=== PATIENT | female | born 1965 | race Caucasian/White ===

== ENCOUNTER → 2020-04-10 08:17 | Outpatient (BNVA) | payer OTHER, SELFPAY | PROVIDERS: Visit Provider Physician Assistant | DX: Z76.89 Persons encountering health services in other specified circumstances (principal) ==

== ENCOUNTER → 2020-04-30 10:11 | Outpatient (BNVA) | payer OTHER, SELFPAY | PROVIDERS: Visit Provider Surgery | DX: Z76.89 Persons encountering health services in other specified circumstances (principal) ==

== ENCOUNTER → 2020-05-21 13:14 | Outpatient (BNVA) | payer OTHER, SELFPAY | PROVIDERS: Visit Provider Surgery ==

== ENCOUNTER → 2020-05-22 08:13 | Outpatient (BNVA) | payer OTHER, SELFPAY | PROVIDERS: Visit Provider Dietitian, Registered ==

== ENCOUNTER → 2020-05-23 14:32 | Outpatient (BNVA) | payer OTHER, SELFPAY | PROVIDERS: Visit Provider Internal Medicine Cardiovascular Disease ==

== ENCOUNTER → 2020-05-31 07:37 | Outpatient (REF) | payer OTHER, SELFPAY ==
--- NOTE | 2020-05-31 07:39 | CA_ITS ---
Transthoracic Echocardiogram Patient (Last, First, Middle): Kyara Hurtado, Gender: Female Date of : 1965 Age: 54 Procedure Date: 05/31/2020 Procedure Type: Transthoracic Echocardiogram Location: OP Height: 167.64 cm Weight: 101.15 kg BSA: 2.09 m2 Heart Rate: bpm BP: 128 / 68 mmHg Bottle Carrier: Referring MD: Getachew Frazier MD Symptoms: I44.7 - Left bundle-branch block, unspecified Study Quality: Fair ECG Rhythm: Sinus Conclusions: - Normal left ventricular cavity size. - The left ventricular systolic function is low normal. The visually estimated ejection fraction is between 50-55%. - Normal right ventricular cavity size and systolic function. - There is mild dilatation of the ascending aorta. Findings Left Ventricle Normal left ventricular cavity size. There is mildly increased left ventricular wall thickness. The left ventricular systolic function is low normal. The visually estimated ejection fraction is between 50-55%. There is no evidence of regional wall motion abnormalities. There is paradoxical septal motion consistent with a left bundle branch block. Diastolic function is indeterminate on the basis of available data. Right Ventricle Normal right ventricular cavity size and systolic function. Atria Both atria are normal in size. There is no evidence of interatrial shunt by color Doppler. Aortic Valve Normal aortic valve structure and function. There is no aortic valve stenosis. There is no aortic valve regurgitation. Mitral Valve Normal mitral valve structure and function. There is no mitral valve regurgitation. There is trace mitral valve stenosis. Pulmonic Valve Normal pulmonic valve structure and function. Tricuspid Valve Normal tricuspid valve structure and function. There is no tricuspid valve regurgitation. Normal right atrial pressure. There is no evidence of pulmonary hypertension. Great Vessels There is mild dilatation of the ascending aorta. The visualized portions of the pulmonary artery and branches are normal. Venous The inferior vena cava is normal in size and collapses greater than 50% with inspiration. Pericardium/Pleural There is no evidence of pericardial effusion. Prior Study Comparison No prior study available for comparison. Measurements 2D Linear Measurements IVSd: 1.12 0.6-0.9/0.6-1.0 cm LVIDd: 4.34 3.9-5.3/4.2-5.9 cm LVIDd Index: 2.08 2.4-3.2/2.2-3.1 cm/m2 LVIDs: 2.77 2.0-3.6 cm LVPWd: 1.10 0.7-1.1 cm Ao Root: 2.70 2.1-3.5 cm LA Diam: 3.90 2.7-3.8/3.0-4.0 cm LAIDs Index: 1.87 1.5-2.3 cm/m2 LV Mass: 208.58 67-162/88-224 g LV Mass Index: 99.80 43-95/49-115 g/m2 LVOT Diam: 2.10 3.0+(-)1.3 cm 2D Systolic Function EF 4C: 47.50 >55% EF 2C: 59.40 >55% Mitral Valve MV Pk E: 0.83 MV PK A: 0.74 MV Decel Time: 151.00 E/A: 1.10 E'Lateral: 11.70 E'Medial: 7.64 E/E' Med: 10.90 E/E' Lat: 7.10 PHT: 44.00 MVA PHT: 5.00 Decel [place]: 5.48 Aortic Valve AoV Pk Jayme: 1.88 AoV Mn Jayme: 1.32 AoV VTI: 0.41 AoV Pk Grad: 14.00 Aov Mn Grad: 8.00 WENDI Cont.VTI: 2.34 LVOT LVOT Pk Jayme: 1.29 LVOT Mn Jayme: 1.00 LVOT VTI: 0.28 LVOT Pk Grad: 7.00 LVOT Mn Grad: 5.00 LVOT Diam: 2.10 LVOT Area: 3.46 Diastolic Function MV Pk E: 0.83 MV Pk A: 0.74 E/A: 1.10 E'Medial: 7.64 E/E' Med: 10.90 E' Laterial: 11.70 E/E' Lat: 7.10 Tricuspid Valve TR Pk Jayme: 1.58 TR Pk Grad: 10.00 RA Press: 3.00 RVSP: 13.00 Great Vessels Aorta Ao Root-2D: 2.70 2.0-3.7 cm Ao Asc: 3.40 2.1-3.4 cm Pulmonary Valve PV Pk Jayme: 1.17 Peak PV Grad: 5.00 Updated in Other Vendor System with Status of Final Getachew Frazier MD electronically signed on 06/01/2020 12:51:47 PM with status of Final
== END ==
LOC: HO.CARD 07:37
PROVIDERS: Visit Provider Internal Medicine Cardiovascular Disease
DX: I44.7 Left bundle-branch block, unspecified (principal)
CPT/HCPCS: 93306

== ENCOUNTER → 2020-06-25 14:26 | Outpatient (BNVA) | payer OTHER, SELFPAY | PROVIDERS: Visit Provider Surgery | DX: I44.7 Left bundle-branch block, unspecified (principal) ==

== ENCOUNTER → 2020-07-08 14:47 | Outpatient (BNVA) | payer OTHER, SELFPAY | PROVIDERS: Visit Provider Surgery ==

== ENCOUNTER → 2020-07-25 14:45 | Outpatient (BNVA) | payer OTHER, SELFPAY | PROVIDERS: Visit Provider Surgery ==

== ENCOUNTER → 2020-08-15 14:35 | Outpatient (BNVA) | payer OTHER, SELFPAY | PROVIDERS: Visit Provider Surgery ==

== ENCOUNTER → 2020-08-16 13:58 | Outpatient (BNVA) | payer OTHER, SELFPAY | PROVIDERS: Visit Provider Physician Assistant ==

== ENCOUNTER 2020-08-21 06:26 | Inpatient (IN) | payer OTHER, SELFPAY ==
[2020-08-13 09:03] VITALS: BMI 33.7
[2020-08-15 17:22] LABS: MANUAL DIFF FLAG NO
[2020-08-15 17:25] LABS: Basophils Percent Auto 0.4 % (0-2); Eosinophils Absolute Auto 0.1 X10*3/uL (0.0-0.4); Eosinophils Percent Auto 1.6 % (0-4); Hematocrit 35.6 % (37-47); Hemoglobin 11.8 g/dl (12.0-16.0); Imm Gran Abs Auto 0.02 X10*3/uL (0.00-0.03); Imm Gran Pct Auto 0.4 % (0.0-0.4); Lymphocytes Percent Auto 36.3 % (20-40); Mean Corpuscular HGB Conc 33.1 g/dl (31.0-35.0); Mean Corpuscular Hemoglobin 31.3 pg (27.0-33.0); Mean Corpuscular Volume 94.4 fL (80-98); Mean Platelet Volume 9.3 fL (9.4-12.3); Monocytes Absolute Auto 0.5 X10*3/uL (0.1-1.2); Monocytes Percent Auto 8.2 % (2-11); Neutrophils Percent Auto 53.1 % (45-73); Platelet Count 201 X10*3/uL (160-400); Red Blood Count 3.77 X10*6/uL (4.20-5.50); White Blood Count 5.6 X10*3/uL (4.8-10.8)
[2020-08-15 17:35] LABS: INTERNATIONAL NORM RATIO 1.1 (0.9-1.1); Prothrombin Time 12.6 SEC (10.8-13.0)
[2020-08-15 17:38] LABS: Glucose Urine UA NEG (NEG); Leukocyte Esterase Urine NEG (NEG); Nitrite Urine NEG (NEG); PH 5.5 (5.0-8.0); Specific Gravity - Urine >= 1.030 (1.005-1.025); Urine Blood NEG (NEG); Urine Ketones NEG (NEG); Urine Protein NEG (NEG-TRACE)
[2020-08-15 17:38] LABS: Partial Thromboplastin Time 36.2 SEC (24.1-38.0)
[2020-08-15 17:44] LABS: Albumin Level 4.7 g/dL (3.5-5.0); Anion Gap 16 (12-20); Blood Urea Nitrogen 33 mg/dL (9-16); Carbon Dioxide 27 mmol/L (22-29); Chloride 102 mmol/L (96-108); Creatinine Clr Calc Pharmacy 68.3; Estimated Glomerular Filt Rate 53; Glucose Random 85 mg/dL (60-115); Sodium 141 mmol/L (135-145)
[2020-08-15 17:50] LABS: Appearance Urine CLEAR; Color Urine YELLOW
--- NOTE | 2020-08-19 13:49 | MHC.SHP ---
Pre-Procedural Eval Section B Chief Complaint: obesity Allergies: Allergies Allergy/AdvReac Type Severity Reaction Status Date / Time Triple antibiotic ointment Allergy Intermediate rash Uncoded 08/15/20 16:04 Plan I have reviewed the history and physical and performed a pertinent physical examination on my patient. No changes have occurred unless specified.
--- NOTE | 2020-08-20 13:51 | ECG_ITS ---
Test Reason : SOB Blood Pressure : / mmHG Vent. Rate : 084 BPM Atrial Rate : 084 BPM P-R Int : 180 ms QRS Dur : 120 ms QT Int : 372 ms P-R-T Axes : 064 043 096 degrees QTc Int : 439 ms Normal sinus rhythm Cannot rule out Anterior infarct , age undetermined Abnormal ECG When compared with ECG of 05-JAN-2020 09:48, Minimal criteria for Anterior infarct are now Present Nonspecific T wave abnormality now evident in Lateral leads Referred By: Funmilayo Escobedo Electronically Signed By:Getachew Frazier
[2020-08-21] VITALS (16 sets, daily range): BP systolic 103–165; BP diastolic 64–84; PULSE 57–90; RESP 16–20; TEMP 36.1–37.3; O2SAT 93–100
[2020-08-21 06:40] LABS: IDNOW Serial# 9DD0AD1C
[2020-08-21 06:41] LABS: COVID-19 Test Negative (Negative)
--- NOTE | 2020-08-21 07:12 | HO.ANESPROP2 ---
FORM[facility]LY [facility] Active Problems Active Problems: All Active Problems (Updated 08/15/20 @ 15:49 by Funmilayo Escobedo MD) Shortness of breath (Acute) Preoperative examination (Acute) Body mass index (BMI) of 36.0-36.9 in adult (Acute) BMI over 35 (Acute) BMI 35.0-35.9,adult (Acute) Obesity (Acute) BMI 33.0-33.9,adult (Acute) Obesity (BMI 30-39.9) (Acute) Past Medical History Medical History Arthritis COVID-19 vaccine administered Degenerative arthritis of knee, bilateral Hx of ectopic Hypertension New onset left bundle branch block (LBBB) Obesity (BMI 30-39.9) Plantar fasciitis, left Family History Family History Father No problems noted. Mother Stroke Brother No problems noted. Brother No problems noted. Son No problems noted. Son No problems noted. Surgical History Surgical History H/O colonoscopy History of bunionectomy History of decompression of ulnar nerve History of right salpingo-oophorectomy Hx of foot surgery Hx of tubal ligation Hx of wisdom tooth extraction Other specified postprocedural states Social History Social History Are you a primary point of care specialist to a significant other at home: No Do you presently have visiting nurse or other home services: No Alcohol intake: current Alcohol intake frequency: holidays/special occasions only Smoking Status: Never smoker Use of substances other than those prescribed or required for medical reasons: No Have you been hit, kicked, punched, or otherwise hurt by someone within the past year? If so, by whom?: No Advance Directives Information Provided: No Recently lost weight without trying: No Meds Allergies Allergy/AdvReac Type Severity Reaction Status Date / Time Triple antibiotic ointment Allergy Intermediate rash Uncoded 08/15/20 16:04 Active Medications: Current Medications Generic Name Dose Route Start Last Admin Trade Name Freq PRN Reason Stop Dose Admin Lactated Ringer's 1,000 mls @ 50 mls/hr 08/21/20 07:15 Lr IV .Q20H [facility] Home Medications Medication Instructions Recorded Confirmed Last Taken Type hydrochlorothiazide 25 mg tablet 25 mg PO DAILY 04/10/20 08/15/20 Unknown History olmesartan 40 mg tablet 20 mg PO DAILY tab 05/21/20 08/15/20 Unknown History COVID-19 vacc,mRNA(Moderna)-PF 100 0.5 ml IM Q4W 07/25/20 08/15/20 Unknown History mcg/0.5 mL IM susp(EUA) Exam Exam Date and Time: August 21, 2020 0712 Height,Weight and Vital Signs: Height 5 ft 6 in Weight 94.982 kg Last Vital Signs Temp 97.0 F 08/21/20 06:19 Pulse 68 08/21/20 06:19 Resp 16 08/21/20 06:19 BP 103/64 08/21/20 06:19 Pulse Ox 99 08/21/20 06:19 Pertinent Lab Results Pertinent Lab Results: Laboratory Tests 08/15/20 08/15/20 08/15/20 16:25 16:25 16:25 WBC 5.6 RBC 3.77 L Hgb 11.8 L Hct 35.6 L MCV 94.4 MCH 31.3 MCHC 33.1 RDW 12.0 Plt Count 201 MPV 9.3 L Immature Gran % (Auto) 0.4 Neut % (Auto) 53.1 Lymph % (Auto) 36.3 [place] % (Auto) 8.2 Eos % (Auto) 1.6 Baso % (Auto) 0.4 Lymph # (Auto) 2.0 [place] # (Auto) 0.5 Eos # (Auto) 0.1 Baso # (Auto) 0.0 Abs Immat Gran (auto) 0.02 Absolute Neuts (auto) 3.0 Absolute Nucleated RBC 0.000 Nucleated RBC % (auto) 0.0 PT 12.6 INR 1.1 APTT 36.2 Sodium 141 Potassium 4.0 Chloride 102 Carbon Dioxide 27 Anion Gap 16 BUN 33 H Creatinine 1.08 Estim Creat Clear Calc 68.3 Estimated GFR 53 Random Glucose 85 Calcium 10.0 Albumin 4.7 Urine Color Urine Appearance Urine pH Ur Specific [place] Urine Protein Urine Glucose (UA) Urine Ketones Urine Blood Urine Nitrite Ur Leukocyte Esterase COVID-19 (NILS) COVID-19 Clin Com Blood Type Antibody Screen 08/15/20 08/15/20 08/21/20 16:25 Unknown 06:05 WBC RBC Hgb Hct MCV MCH MCHC RDW Plt Count MPV Immature Gran % (Auto) Neut % (Auto) Lymph % (Auto) [place] % (Auto) Eos % (Auto) Baso % (Auto) Lymph # (Auto) [place] # (Auto) Eos # (Auto) Baso # (Auto) Abs Immat Gran (auto) Absolute Neuts (auto) Absolute Nucleated RBC Nucleated RBC % (auto) PT INR APTT Sodium Potassium Chloride Carbon Dioxide Anion Gap BUN Creatinine Estim Creat Clear Calc Estimated GFR Random Glucose Calcium Albumin Urine Color YELLOW Urine Appearance CLEAR Urine pH 5.5 Ur Specific [place] >= 1.030 H Urine Protein NEG Urine Glucose (UA) NEG Urine Ketones NEG Urine Blood NEG Urine Nitrite NEG Ur Leukocyte Esterase NEG COVID-19 (NILS) Negative COVID-19 Clin Com See Note Blood Type A Positive Antibody Screen NEGATIVE Airway Mallampati Class: II TM Dist: >3cm Neck ROM: Full Loose/Missing/Broken Teeth: No Heart: RRR Lungs: CTA Assessment and Plan Assessment Anesthesia Assessment: Anesthesia Plan Discussed and Chart Reviewed Final Anesthetic Review NPO: Yes ASA Class: II Final Preanesthetic Review: Meds/Allgs Chart Reviewed, Consent Obtained/Reviewed and Anes Risks/Benef Reviewed Patient Risk: Low Procedure Risk: Intermediate Anesthetic Plan Anesthetic Plan: GA (Communicated with Dr Frazier re Ekg changes from yesterday and ECHO findings from 05/23. Pt without symptoms and has a physical job and recreation activities. Agreed that it wso to proceed with GA.) Disposition: Standard PACU
[2020-08-21] MEDS: Lactated Ringers 1,000 ML 50 ML IV (08:05)
[2020-08-21] MEDS: fentaNYL citrate/PF 100 MCG/2 ML VIAL 25 MCG IVPUSH ×4 (09:45→10:25)
--- NOTE | 2020-08-21 09:49 | PM.OP ---
Brief Operative Note Date of Service: 08/21/20 Pre-op diagnosis: Obesity, BMI 33.7, hypertension Post-op diagnosis: other (Same and hiatal hernia) Procedure: Laparoscopic sleeve gastrectomy, hiatal hernia repair, Morena block, and intraoperative endoscopy Implants: covidien veronica Surgeon: Funmilayo Escobedo MD Anesthesia: GETA Chair Springer: Tomeka Kaplan Estimated blood loss (mL): 5 Pathology: other (Partial gastrectomy) Condition: stable Disposition: PACU
--- NOTE | 2020-08-21 09:50 | W.PM.OPN ---
Operative Note Operative Note Date of Service: 08/21/20 Narrative: Patient was brought into the operating room and placed on the operating room table in the supine position. General anesthesia was induced. Normal DVT prophylaxis was instituted and the patient received 2 grams of cefotetan preoperatively. The abdomen was then prepped and draped in the normal sterile fashion. A safety time-out was performed. A mixture of 1% lidocaine with epinephrine and ?% Marcaine plain was used to anesthetize the planned incision site in the left upper quadrant. A #11 scalpel was used to make a 5 mm left upper quadrant transverse incision through which a veress needle was placed. Three pops were heard going through the fascia. A saline drop test was used to confirm that the veress needle was intraabdominal. An optiview technique was then used to place a 5mm port in the left upper quadrant. A 5 mm 30 degree laproscope was then placed through this port and the abdominal cavity was surveyed and was normal. The patient was placed in reverse Trendelenburg positioning. A jignesh liver retractor was then placed in the subxyphoid position and it was used to hold up the left lobe of the liver to the abdominal wall. This was secured to the bed using the liver retractor acuna. A GOOD block was then performed for pain control on the right side of the abdomen. A 5 mm port was placed in the right upper quadrant near the falciform ligament. A 12 mm port was then placed in the mid epigastrium. One additional 5 mm port was placed in the left upper quadrant just to the left of the placement of the first port. I then performed a GOOD block on the left side of the abdomen. I then removed the epigastric fat pad; there was a small anterior hiatal hernia noted. I reapproximated the left and right crura with a total of 2 stitches of 2-0 ethibond and a laparoscopic knot pusher. There was no residual hiatal hernia. I then opened up the angle of His. We then gained entry into the lesser sac about 4-5 cm from the pylorus. I had anesthesia place a 34 [place] orogastric tube into the distal antrum to use as a sizing tool for gastric pouch size. I divided the short gastric vessels up to the angle of His. We then started the creation of the gastric pouch by firing a 60 mm purple load endostapler up the stomach about 4-5 cm from the pylorus. We completed the creation of the gastric pouch using a total of 4 firings of a 60 mm purple load stapler. We had anesthesia remove the orogastric tube, then we clamped across the distal antrum using a fired 60 mm endostapler. We flattened the patient and then instilled normal saline surrounding the newly created staple line. I then performed an on-table endoscopy. I passed the gastroscopy into the posterior oropharynx and down the esophagus evaluating the esophageal mucosa which was normal. There was no evidence of hiatal hernia. I passed the gastroscope into the gastric pouch and insufflated the gastric pouch. There was healthy pink mucosa and no evidence of active bleeding. There was no evidence of leak on laparoscopy. I desufflated the gastric pouch and removed the endoscope. I removed the endostapler from the abdomen and suctioned the fluid from the left upper quadrant. I then removed the partial gastrectomy specimen through the epigastric 12 mm port site. I reapproximated the 12 mm port using a 0 maxon suture with a laparoscopic suture passer. I instilled local anesthetic into the fascial closure site and tied the suture down at a pressure of 8-10 mm of Hg. There was no residual fascial defect. We removed the liver retractor and the left upper quadrant 5 mm ports under direct visualization. There was no evidence of any active bleeding. I desufflated the abdomen through the last remaining port and removed the laparoscope and 5 mm port. We reapproximated all incisions with a 4-0 monocryl subcuticular stitch. We cleaned and dried the abdominal skin and applied dermabond skin glue. All count were correct at the end of the case. The patient was awake and in stable condition prior to extubation and transfer to the recovery room.
[2020-08-21] MEDS: ondansetron HCL 4 MG/2 ML VIAL IVPUSH ×2 (12:03→19:59)
[2020-08-21] MEDS: Lactated Ringers 1,000 ML 125 ML IVCONT ×2 (12:06→20:03)
[2020-08-21] MEDS: HYDROmorphone HCl 0.5 MG/0.5 ML SYRINGE 0.25 MG IVPUSH ×2 (15:15→19:59)
--- NOTE | 2020-08-21 16:09 | PM.PNGS ---
Subjective Subjective Date of Service: 08/22/20 <Tomeka Kaplan PA-C - Last Filed: 08/22/20 10:34> 08/22/20 <Funmilayo Escobedo MD - Last Filed: 08/22/20 08:51> Interval history: POD #1: Patient is doing well. Has been ambulating, using the incentive spirometer, and tolerating po liquids. No nausea or abdominal pain. Has some mild incisional pain. <Tomeka Kaplan PA-C - Last Filed: 08/22/20 10:34> This is a 55-year-old lady on postoperative day 1. Status post laparoscopic sleeve gastrectomy with hiatal hernia repair doing well. Vital signs are within normal limits. Patient is tolerating stage III bariatric diet without difficulty. She has been ambulating in her room and using the incentive spirometer. Urinary output is adequate. Postoperative laboratory values are within normal limits. On exam: Abdomen is soft nondistended mild appropriate incisional tenderness. Incisions are clean dry intact with Dermabond in place. On general appearance patient is well appearing she is in no apparent distress. Extremities are warm and well perfused without edema or tenderness to palpation. Assessment and plan: This is a 55-year-old lady on postoperative day 1. Status post laparoscopic sleeve gastrectomy with hiatal hernia repair for treatment of obesity. Patient is doing well she is tolerating diet she will be discharged home to continue on stage III bariatric diet and follow up with me in 2 weeks postoperative. <Funmilayo Escobedo MD - Last Filed: 08/22/20 08:51> Physical Exam Vital Signs: Vital Signs: Last Vital Signs Temp 98.6 F 08/21/20 15:41 Pulse 73 08/21/20 15:41 Resp 16 08/21/20 15:41 BP 149/70 H 08/21/20 15:41 Pulse Ox 96 08/21/20 15:41 Body Mass Index 33.7 <Tomeka Kaplan PA-C - Last Filed: 08/22/20 10:34> Const: General: cooperative, comfortable, no acute distress, alert and awake <Tomeka Kaplan PA-C - Last Filed: 08/22/20 10:34> Nutritional Appearance: obese <Tomeka Kaplan PA-C - Last Filed: 08/22/20 10:34> GI: Inspection: Yes normal to inspection, Yes incision (normal, slight erythema at site of surgical glue, no tenderness/warmth/drai) and Yes obesity <Tomeka Kaplan PA-C - Last Filed: 08/22/20 10:34> Extrem: Right lower extremity: lower leg Details: no tenderness; no edema <Tomeka Kaplan PA-C - Last Filed: 08/22/20 10:34> Left lower extremity: lower leg Details: no tenderness; no edema <Tomeka Kaplan PA-C - Last Filed: 08/22/20 10:34> Progress Note: A&P Assessment and plan (1) Obesity: Status: Acute <WILIAM Cunha Last Filed: 08/22/20 10:34> (2) BMI 33.0-33.9,adult: Status: Acute <Tomeka Kaplan PA-C [place] Last Filed: 08/22/20 10:34> (3) Hiatal hernia: Status: Acute <Tomeka Kaplan PA-C [place] Last Filed: 08/22/20 10:34> (4) History of repair of hiatal hernia: Status: Acute <Tomeka Kaplan PA-C [place] Last Filed: 08/22/20 10:34> (5) S/P laparoscopic sleeve gastrectomy: Status: Acute <Tomeka Kaplan PA-C [place] Last Filed: 08/22/20 10:34> (6) Intestinal malabsorption following gastrectomy: Status: Acute <WILIAM Cunha Last Filed: 08/22/20 10:34> Assessment and Plan: POD #1: Patient is doing well and will be discharged home today. All the discharge instructions were reviewed with the patient and given in writing. Patient will follow up as scheduled in 2 weeks. <WILIAM Cunha Last Filed: 08/22/20 10:34> Fall Risk Details Current Medications: Current Medications Generic Name Dose Route Start Last Admin Trade Name Freq PRN Reason Stop Dose Admin Albuterol Sulfate 2.5 mg 08/21/20 08:26 Albuterol Sulfate (0.083%) 2.5 Mg/3 Ml Vial.Neb INHALE ONCE PRN Wheezing Famotidine 20 mg 08/21/20 21:00 Famotidine/Pf 20 Mg/2 Ml Vial IVPUSH BID CAROLA Hydromorphone HCl 0.25 mg 08/21/20 10:47 08/21/20 15:15 Hydromorphone Hcl 0.5 Mg/0.5 Ml Syringe IVPUSH 0.25 mg Q4H PRN Administration Pain, Severe (Pain Scale 7-10) Lactated Ringer's 1,000 mls @ 125 mls/hr 08/21/20 10:47 08/21/20 12:06 Lr IVCONT 125 mls/hr .Q8H [place] Administration Cefotetan Disodium 2 gm/ 50 mls @ 100 mls/hr 08/21/20 20:00 Sodium Chloride IV 08/21/20 20:29 POSTOP@2000 ONE Acetaminophen 1,000 mg in 100 mls @ 16.7 mls/hr 08/21/20 10:47 08/21/20 13:15 Ofirmev IV 16.7 mls/hr .Q6H [place] Administration Metoclopramide HCl 10 mg 08/21/20 10:47 Metoclopramide Hcl 10 Mg/2 Ml Vial IVPUSH Q6H PRN Nausea Ondansetron HCl 4 mg 08/21/20 10:47 08/21/20 12:03 Ondansetron Hcl 4 Mg/2 Ml Vial IVPUSH 4 mg Q8H [place] Administration Sodium Chloride 3 ml 08/21/20 16:00 08/21/20 14:27 0.9 % Sodium Chloride Flush 3 Ml Syringe IVFLUSH Not Given QSHIFT CAROLA <Tomeka Kaplan PA-C - Last Filed: 08/22/20 10:34> Time Spent With Patient Time: Total time spent is greater than 50% in coordination of care (as documented) at patient's floor/unit and/or counseling patient: <Tomeka Kaplan PA-C - Last Filed: 08/22/20 10:34> Time with patient: less than 15 minutes <Funmilayo Escobedo MD - Last Filed: 08/22/20 08:51>
--- NOTE | 2020-08-21 16:10 | PM.DS ---
DS: Providers Provider Date of Service: 08/22/20 Date of admission: 08/21/20 06:26 Primary care physician: Unknown Physician DS: Diagnosis Discharge Diagnosis (1) Obesity: Status: Acute (2) BMI 33.0-33.9,adult: Status: Acute (3) Hiatal hernia: Status: Acute (4) History of repair of hiatal hernia: Status: Acute (5) S/P laparoscopic sleeve gastrectomy: Status: Acute (6) Intestinal malabsorption following gastrectomy: Status: Acute DS: Medications Discharge Medications Home Medications: Home Medications Medication Instructions Recorded Confirmed hydrochlorothiazide 25 mg tablet 25 mg PO DAILY 04/10/20 08/15/20 olmesartan 40 mg tablet 20 mg PO DAILY tab 05/21/20 08/15/20 COVID-19 vacc,mRNA(Moderna)-PF 100 0.5 ml IM Q4W 07/25/20 08/15/20 mcg/0.5 mL IM susp(EUA) Previous Rx's Medication Instructions Recorded acetaminophen 500 mg tablet 1,000 mg PO Q6H PRN #30 tab 08/15/20 docusate sodium 100 mg capsule 100 mg PO BID #30 cap 08/15/20 famotidine 20 mg tablet 20 mg PO DAILY #30 tab 08/15/20 ondansetron HCl 4 mg tablet 4 mg PO Q6H PRN #30 tab 08/15/20 simethicone 80 mg chewable tablet 80 mg PO TID-QID PRN #30 tab 08/15/20 DS: Summary Time Spent with Patient Time attestation: Total time spent providing and/or coordinating discharge services: Discharge coordination time: Greater than 30 minutes Physical Exam Vital Signs: Vital Signs: Last Vital Signs Temp 98.6 F 08/21/20 15:41 Pulse 73 08/21/20 15:41 Resp 16 08/21/20 15:41 BP 149/70 H 08/21/20 15:41 Pulse Ox 96 08/21/20 15:41 Body Mass Index 33.7 DS: Data Data Completed and Pending Pending studies at discharge: Pending at discharge 08/21/20 09:04 Surgical [PTH] Routine Labs on day of discharge: Laboratory Results - last 24 hr 08/21/20 06:05 COVID-19 (NILS) Negative COVID-19 Clin Com See Note Discharge Plan Discharge Patient Disposition: Home, Self-Care Discharge Diagnosis: obesity s/p LSG Referrals: Physician,Unknown [Primary Care Provider] - 1 Week Discharge Medications: Continued COVID-19 vacc,mRNA(Moderna)-PF 100 mcg/0.5 mL suspension 0.5 ml IM Q4W RF: 0 acetaminophen [Tylenol Extra Strength] 500 mg tablet 1,000 mg PO Q6H PRN (Reason: pain) Qty: 30 RF: 1 famotidine [Pepcid AC] 20 mg tablet 20 mg PO DAILY Qty: 30 RF: 1 simethicone [Gas Relief (simethicone)] 80 mg tablet,chewable 80 mg PO TID-QID PRN (Reason: abdominal distention) Qty: 30 RF: 1 ondansetron HCl [Zofran] 4 mg tablet 4 mg PO Q6H PRN (Reason: nausea and vomiting) Qty: 30 RF: 1 docusate sodium [Colace] 100 mg capsule 100 mg PO BID Qty: 30 RF: 1 hydrochlorothiazide 25 mg tablet 25 mg PO DAILY RF: 0 olmesartan 40 mg tablet 20 mg PO DAILY RF: 0 Discharge Orders: Discharge Order (Routine); Ordered 08/22/20 Ordered By: Funmilayo Escobedo Diet: other Activity on Discharge: No heavy lifting Stand Alone Forms: Patient Portal Discharge page Care Plan Goals: weight loss Health Concerns: obesity Plan of Treatment: LSG Assessment: POD #1 discharged home s/p LSG
[2020-08-21] MEDS: Valsartan 160 MG TABLET PO (16:25)
[2020-08-21] MEDS: cefoTEtan disodium 2 GM in 0.9 % Sodium Chloride 50 ML IV (20:12)
[2020-08-21] MEDS: Famotidine/PF 20 MG/2 ML VIAL IVPUSH (21:06)
[2020-08-22] MEDS: HYDROmorphone HCl 0.5 MG/0.5 ML SYRINGE 0.25 MG IVPUSH ×2 (00:56→10:49)
[2020-08-22 04:00] VITALS: BP 124/69; PULSE 79; RESP 20; TEMP 36.4; O2SAT 96
[2020-08-22] MEDS: ondansetron HCL 4 MG/2 ML VIAL IVPUSH ×2 (04:05→09:14)
[2020-08-22] MEDS: Lactated Ringers 1,000 ML 125 ML IVCONT (04:05)
[2020-08-22 04:58] LABS: MANUAL DIFF FLAG NO
[2020-08-22 04:59] LABS: Basophils Percent Auto 0.1 % (0-2); Eosinophils Percent Auto 0.1 % (0-4); Hemoglobin 9.7 g/dl (12.0-16.0); Imm Gran Abs Auto 0.02 X10*3/uL (0.00-0.03); Imm Gran Pct Auto 0.3 % (0.0-0.4); Lymphocytes Absolute Auto 1.7 X10*3/uL (1.2-4.9); Lymphocytes Percent Auto 24.3 % (20-40); Mean Corpuscular HGB Conc 32.3 g/dl (31.0-35.0); Mean Corpuscular Hemoglobin 31.2 pg (27.0-33.0); Mean Corpuscular Volume 96.5 fL (80-98); Mean Platelet Volume 8.9 fL (9.4-12.3); Monocytes Absolute Auto 0.7 X10*3/uL (0.1-1.2); Monocytes Percent Auto 9.8 % (2-11); Neutrophils Absolute Auto 4.5 X10*3/uL (2.0-8.3); Neutrophils Percent Auto 65.4 % (45-73); Platelet Count 215 X10*3/uL (160-400); Red Blood Count 3.11 X10*6/uL (4.20-5.50); Red Cell Distribution Width 11.8 % (11.0-16.0); White Blood Count 6.8 X10*3/uL (4.8-10.8)
[2020-08-22 05:30] LABS: Anion Gap 13 (12-20); Blood Urea Nitrogen 17 mg/dL (9-16); Calcium 8.8 mg/dL (8.4-10.2); Carbon Dioxide 27 mmol/L (22-29); Chloride 105 mmol/L (96-108); Creatinine Clr Calc Pharmacy 76.8; Estimated Glomerular Filt Rate > 60; Glucose Random 94 mg/dL (60-115); Sodium 141 mmol/L (135-145)
--- NOTE | 2020-08-22 06:54 | P.CDIC_ITS ---
CDI Concurrent Query Service Date: 08/22/20 Documentation Clarification: Please clarify if you are treating a proba ble/suspected/likely or confirmed: Morbid Obesity Severe Obesity Other Obesity, please specify Treating obesity bmi 33.7. Patient lost weight prior to surgery. Bmi was greater than 35 with hypertension treated with medications. Provider Response: Obesity PLEASE DO NOT DELETE/MODIFY EXISTING CONTENT Additional information is needed in order to code to the highest accuracy and appropriate Severity of Illness (SOI). Please clarify the information noted below in your progress notes and discharge summary. Risk Factors/Clinical Indicators/Treatments 55 year old female admitted with Obesity, unspecified, BMI 33.7 and Hiatal Hernia Underwent Lap Sleeve Gastrectomy, Hiatal Hernia repair, Morena Block, and intraoperative endoscopy CDS: Gabriela Ramey RN Contact Number: [phone] Please Review the information above and exercise your independent professional judgment in responding to the query. If you concur, pleas document in the PROGRESS NOTES and DISCHARGE SUMMARY. If you do not agree with the query, please document in the query above. THIS QUERY IS PART OF THE PERMANENT MEDICAL RECORD
[2020-08-22] MEDS: Famotidine/PF 20 MG/2 ML VIAL IVPUSH (07:38)
[2020-08-22 08:00] VITALS: BP 129/71; PULSE 72; RESP 19; TEMP 36.4; O2SAT 96
[2020-08-22] MEDS: Valsartan 160 MG TABLET PO (09:10)
--- NOTE | 2020-08-22 10:19 | MHC.CM.PN ---
PT REPORTS SHE LIVES AT HOME WITH HER S/O AND IS FULLY INDEPENDENT WITH ALL CARE AND MOBILITY. PT DENIES THE USE OF DME OR HOME SERVICES. PT DOES NOT HAVE A HCP BUT WILL COMPLETE ONE TODAY NAMING JACEK SPIVEY ([phone]) HER AGENT. PT REPORTS HER PCP IS SHERLEY MANNING. PT WILL DC HOME TODAY WITH NO SERVICES. PT TO SELF ARRANGE TRANSPORT
--- NOTE | 2020-08-22 11:04 | HO.POSTANES ---
Post Anesthesia Evaluation Post Anesthesia Evaluation Vital Signs: Vital Signs Temp Pulse Resp BP Pulse Ox 08/22/20 08:00 97.6 F 72 19 129/71 96 08/22/20 04:00 97.6 F 79 20 124/69 96 08/21/20 23:55 97.7 F 71 20 115/66 96 Anesthesia: Monitored Mental Status: Awake Pain Control: Satisfactory Nausea/Vomiting: None Hydration: Adequate Anesthesia-Related Issues: No Anes. Related Issues
[2020-08-22 12:00] VITALS: BP 141/77; PULSE 70; RESP 18; TEMP 36.2; O2SAT 97
--- NOTE | 2020-08-29 16:41 | PM.DS ---
DS: Providers Provider Date of Service: 08/22/20 Date of admission: 08/21/20 06:26 Primary care physician: Unknown Physician DS: Diagnosis Discharge Diagnosis (1) Obesity: Status: Acute (2) BMI 33.0-33.9,adult: Status: Acute (3) Hiatal hernia: Status: Acute (4) History of repair of hiatal hernia: Status: Acute (5) S/P laparoscopic sleeve gastrectomy: Status: Acute (6) Intestinal malabsorption following gastrectomy: Status: Acute DS: Medications Discharge Medications Home Medications: Home Medications Medication Instructions Recorded Confirmed hydrochlorothiazide 25 mg tablet 25 mg PO DAILY 04/10/20 08/15/20 olmesartan 40 mg tablet 20 mg PO DAILY tab 05/21/20 08/15/20 COVID-19 vacc,mRNA(Moderna)-PF 100 0.5 ml IM Q4W 07/25/20 08/15/20 mcg/0.5 mL IM susp(EUA) Previous Rx's Medication Instructions Recorded acetaminophen 500 mg tablet 1,000 mg PO Q6H PRN #30 tab 08/15/20 docusate sodium 100 mg capsule 100 mg PO BID #30 cap 08/15/20 famotidine 20 mg tablet 20 mg PO DAILY #30 tab 08/15/20 ondansetron HCl 4 mg tablet 4 mg PO Q6H PRN #30 tab 08/15/20 simethicone 80 mg chewable tablet 80 mg PO TID-QID PRN #30 tab 08/15/20 DS: Summary Time Spent with Patient Time attestation: Total time spent providing and/or coordinating discharge services: Discharge coordination time: Greater than 30 minutes Physical Exam Vital Signs: Vital Signs: Last Vital Signs Temp 97.2 F 08/22/20 12:00 Pulse 70 08/22/20 12:00 Resp 18 08/22/20 12:00 BP 141/77 H 08/22/20 12:00 Pulse Ox 97 08/22/20 12:00 Body Mass Index 33.7 DS: Data Data Completed and Pending Completed studies during hospitalization [Text1]: Pending at discharge 08/21/20 09:04 Surgical [PTH] Routine Procedures Excision of Stomach, Percutaneous Endoscopic Approach, Vertical (08/21/20) Repair Diaphragm, Percutaneous Endoscopic Approach (08/21/20) Discharge Plan Discharge Patient Disposition: Home, Self-Care Discharge Diagnosis: obesity s/p LSG Referrals: Physician,Unknown [Primary Care Provider] - 1 Week Discharge Medications: Continued COVID-19 vacc,mRNA(Moderna)-PF 100 mcg/0.5 mL suspension 0.5 ml IM Q4W RF: 0 acetaminophen [Tylenol Extra Strength] 500 mg tablet 1,000 mg PO Q6H PRN (Reason: pain) Qty: 30 RF: 1 famotidine [Pepcid AC] 20 mg tablet 20 mg PO DAILY Qty: 30 RF: 1 simethicone [Gas Relief (simethicone)] 80 mg tablet,chewable 80 mg PO TID-QID PRN (Reason: abdominal distention) Qty: 30 RF: 1 ondansetron HCl [Zofran] 4 mg tablet 4 mg PO Q6H PRN (Reason: nausea and vomiting) Qty: 30 RF: 1 docusate sodium [Colace] 100 mg capsule 100 mg PO BID Qty: 30 RF: 1 hydrochlorothiazide 25 mg tablet 25 mg PO DAILY RF: 0 olmesartan 40 mg tablet 20 mg PO DAILY RF: 0 Discharge Orders: Discharge Order (Routine); Ordered 08/22/20 Ordered By: Funmilayo Escobedo Diet: other Activity on Discharge: No heavy lifting Stand Alone Forms: Patient Portal Discharge page Activity Restrictions/Additional Instructions: Discharge Instructions 1. Please call your doctor or come back to the emergency room should any new symptoms arise. 2. You will receive a courtesy call from [facility] 24-48 hours after discharge. 3. Activity: abstain from alcohol, practice limited stair climbing, no bending, no driving, no exercise, no illicit substances, no lifting, no sex, no tub bath, no work. 4. Diet: continue stage 3 protein shakes until your [address] Escobedo. 5. Dressing Change/Wound Care: Your incision is covered by surgical glue. If the area is tender, you may apply an ice pack for short intervals (no more than 20 minutes on, followed by at least 20 minutes off). Do not apply heat. Do not use creams, lotions, or topical antibiotics unless instructed to do so by your surgeon. These can cause infection or allergic reaction. 6. Call your doctor if: - Your temperature exceeds 101.5 F - You experience excessive pain or swelling - You have an unexpected reaction to medication - You have excessive bleeding - You experience continued vomiting/nausea - Your incision begins to separate - Your incision shows signs of infection such as increased redness, swelling, excessive pain, heat, or drainage (light blood or clear fluid is normal) 7. General instructions: - No lifting greater than 5 lbs for the next 4 weeks. - No driving within 24 hours of taking narcotic pain medications. - If you do not move your bowels in the next 2 days, please take milk of magnesia over the counter. Please follow the post op diet and do not advance your diet until you are seen in the office in about 2 weeks. - Please walk around your home every hour or two to prevent blood clots from forming in your legs. You do not need to wake from sleeping to walk. - Please sleep in a bed or couch to prevent kinking at the hips and knees. - Please take your incentive spirometer (your lung welder gun) home with you and use it for the next few days to prevent pneumonias. - You may shower, no hot tubs, baths or swimming pools. - Please call the office with any questions or concerns such as increasing abdominal pain, fever, chills, shortness of breath, chest pain, leg pain or swelling, or redness or drainage from your incisions. - Please stay on stage 3 diet which includes sugar free clear liquids such as ice pops and jello and broth and crystal light. Avoid all carbonation. Please drink 3 protein shakes with at least 25-30 grams of protein daily or 3 of the Celebrate 4:1 shakes which can be purchased in our office. The Celebrate shakes have all of the bariatric vitamins you need if you consume these shakes. If you are drinking other protein shakes, you will need to purchase the Celebrate multivitamins and calcium that we provide in the office (they will provide all the vitamins you need). Please make sure you are consuming at least 40-60 ounces of water in addition to your 3 protein shakes daily. 8. Do not hesitate to contact the office with any questions at . Discharge Summary Date of Service: 08/22/20 Admitting Diagnosis: obesity Discharge Diagnosis: same Procedure Performed: LSG Discharge Medications: 1. Simethicone 80mg tablet chewable (Si tablet every 6 hours orally for 7 days, #28, 1 RF) q4h prn gas 2. Acetaminophen 500 mg tablet (Si tablets as needed every 6 hours orally for 30 days, #240, 0 RF) 3. Ondansetron 4 mg tablet disintegrating (Si tablet every 6 hours orally for 7 days, #28, 1 RF) 4. Colace 100 mg capsule (Si capsule twice a day for 30 days, #60, 2 RF) 5. Pepcid 20 mg chewable tablet (Si tablet twice a day for 30 days, #60, 3 RF) Discharge Instructions: The patient should continue on the stage III bariatric diet, which includes 3 protein shakes of at least 20-30g of protein on a daily basis. The patient was encouraged to avoid drinking liquids with her protein shakes. They should wait 30-45 minutes in between her meals and drinking water. She should drink at least 40-60 ounces of water on a daily basis. They should ambulate while at home to avoid any blood clots in her lower extremities. They should call with any questions or concerns such as increase in abdominal pain, persistent nausea, vomiting, redness and drainage from her incisions, fever, chills, shortness of breast, or chest pain beyond what is normal for her. The patient should avoid all heavy lifting greater than 5 pounds for the next 4 weeks. The patient is already scheduled to follow up with me in 2 weeks time, but should call the office with any questions prior to that follow up appointment. The patient should not advance their diet until they are seen in the office for the 2 week appointment. Hospital Course: The patient was admitted after undergoing SURGERY. They were started on stage II (1 oz of fluid every 15 minutes) on POD #0. The next morning they were evaluated and started on stage III diet (protein shakes). All labs were within normal limits. On post-operative day #1 she was feeling better, nausea and epigastric pain improved and they were tolerating stage III bariatric diet well. The patient was discharged home. Discharge Disposition: Home. Care Plan Goals: weight loss Health Concerns: obesity Plan of Treatment: LSG Assessment: POD #1 discharged home s/p LSG Discharge Date/Time: 08/22/20 15:03
== END 2020-08-22 15:03 | disposition home or self-care (01) | DRG 621 ==
LOC: HO.SSSA 06:28 → HO.S3 10:10
PROVIDERS: Physician Assistant; Admitting Provider Surgery; Visit Provider Surgery
PROC: 0DB64Z3 Excision of Stomach, Percutaneous Endoscopic Approach, Vertical (ICD-10-PCS; CPT 43845; principal; 2020-08-21 07:30)
DX: E66.9 Obesity, unspecified (principal); K44.9 Diaphragmatic hernia without obstruction or gangrene; Z68.33 Body mass index [BMI] 33.0-33.9, adult; Z20.822 Contact with and (suspected) exposure to COVID-19; Z79.899 Other long term (current) drug therapy
CPT/HCPCS: 36415; 80048; 81003; 82040; 85025; 85610; 85730; 86850; 86900; 86901; 87635; 88307; 88342; 93005; 99024; C1776; J0131; J1100; J1170; J2250; J2370; J2405; J2550; J3010

== ENCOUNTER → 2020-09-05 15:08 | Outpatient (BNVA) | payer OTHER, SELFPAY | PROVIDERS: Visit Provider Surgery ==

== ENCOUNTER → 2020-10-22 14:59 | Outpatient (BNVA) | payer OTHER, SELFPAY | PROVIDERS: Visit Provider Dietitian, Registered | DX: E66.3 Overweight (principal); Z68.28 Body mass index [BMI] 28.0-28.9, adult | CPT/HCPCS: 97803 ==

== ENCOUNTER → 2020-11-19 15:28 | Outpatient (BNVA) | payer OTHER, SELFPAY | PROVIDERS: Visit Provider Physician Assistant ==

== ENCOUNTER → 2020-12-17 15:36 | Outpatient (BNVA) | payer OTHER, SELFPAY | PROVIDERS: Visit Provider Surgery ==

== ENCOUNTER → 2021-03-25 08:04 | Outpatient (BNVA) | payer OTHER, SELFPAY | PROVIDERS: Visit Provider Dietitian, Registered ==